=== PATIENT | male | born 1960 | race Two or more races ===

== ENCOUNTER 2018-08-30 14:12 | Emergency (ER) | payer OTHER ==
[~2018-08-30] VITALS: Ht 175.3 cm; Wt 79.4 kg
[~2018-08-30 14:12] MED LIST: INCARCERATION
[2018-08-30] MEDS ORDERED: CEPH500 PO (16:12)
[2018-08-30] MEDS ORDERED: Norco 5-325 Ta1 EACH PO (16:33)
== END 2018-08-30 16:47 | disposition home or self-care (01) ==
LOC: ER 14:12
DX: S62.522B Displaced fracture of distal phalanx of left thumb, initial encounter for open fracture (principal); W31.2XXA Contact with powered woodworking and forming machines, initial encounter; F17.200 Nicotine dependence, unspecified, uncomplicated
CPT/HCPCS: 12002; 73140; 90471; 90714; 96372-59; 99282-25; J0690

== ENCOUNTER 2019-11-12 12:07 | Emergency (ER) | payer OTHER ==
[~2019-11-12] VITALS: Ht 172.7 cm; Wt 72.6 kg
[~2019-11-12 12:07] MED LIST changes: +CEPH500 PO; +Norco 5-325 Ta1 EACH PO
[2019-11-12 13:12] LABS: BASOPHILS ABSOLUTE AUTO 0.08 K/mm3 (0.00-0.23); BASOPHILS PERCENT AUTO 1 % (0-2); EOSINOPHILS ABSOLUTE AUTO 0.19 K/mm3 (0.00-0.68); EOSINOPHILS PERCENT AUTO 2 % (0-6); Hematocrit 44.9 % (37.0-53.0); Hemoglobin 15.1 g/dL (13.5-17.5); IMMATURE GRAN ABSOLUTE AUTO 0.03 K/mm3 (0.00-0.10); IMMATURE GRAN PERCENT AUTO 0 % (0-1); LYMPHOCYTES ABSOLUTE AUTO 2.51 K/mm3 (0.84-5.20); LYMPHOCYTES PERCENT AUTO 25 % (21-46); MONOCYTES ABSOLUTE AUTO 1.39 K/mm3 (0.16-1.47); MONOCYTES PERCENT AUTO 14 % (4-13); Mean Corpuscular HGB 33.5 pg (26.0-34.0); Mean Corpuscular HGB Conc 33.6 g/dL (31.5-36.5); Mean Corpuscular Volume 100 fL (80-100); Mean Platelet Volume 9.7 fL (9.1-12.4); NEUTROPHILS PERCENT AUTO 58 % (41-73); Platelet Count 193 K/mm3 (150-400); RDW Coefficient Variation 13.5 % (11.7-14.2); RDW Standard Deviation 49.6 fL (35.1-46.3); Red Blood Cell Count 4.51 M/mm3 (4.30-5.90)
[2019-11-12 13:29] LABS: Troponin I <0.015 ng/mL (0.000-0.040)
[2019-11-12 13:30] LABS: Alanine Aminotransfer (ALT/SGP 132 U/L (12-78); Albumin, Blood 2.4 g/dL (3.4-5.0); Albumin/Globulin Ratio 0.5 (0.8-1.8); Alk Phos 256 U/L (50-136); Anion Gap 5 mmol/L (6-16); Aspartate Aminotrans (AST/SGOT 142 U/L (12-37); Bilirubin, Total 1.4 mg/dL (0.1-1.0); Blood Urea Nitrogen 8 mg/dL (8-24); Bun/Creatinine Ratio 12.3 (12.0-20.0); CO2, Blood 28 mmol/L (21-32); Calcium, Blood 8.2 mg/dL (8.5-10.1); Chloride, Blood 105 mmol/L (98-108); Creatinine, Blood 0.65 mg/dL (0.60-1.20); Globulin, Blood 4.4 g/dL (2.2-4.0); Glomerular Filtration Rate >60 (60-); Glucose, Blood 274 mg/dL (70-99); Sodium, Blood 138 mmol/L (136-145); Total Protein, Blood 6.8 g/dL (6.4-8.2)
[2019-11-12] MEDS ORDERED: KEFLEX500 MG PO (15:55)
== END 2019-11-12 16:11 | disposition home or self-care (01) ==
LOC: ER 12:07
PROVIDERS: Emergency Medicine
DX: R00.2 Palpitations (principal); L03.113 Cellulitis of right upper limb; R07.9 Chest pain, unspecified; S61.551A Open bite of right wrist, initial encounter; R14.0 Abdominal distension (gaseous); F17.200 Nicotine dependence, unspecified, uncomplicated; W54.0XXA Bitten by dog, initial encounter
CPT/HCPCS: 36415; 71046; 76700; 80053; 84484; 85025; 93005; 93010; 96365; 99285-25; J0696; J7030

== ENCOUNTER → 2019-11-25 | Outpatient (CLI) | payer OTHER ==
[~2019-11-25] MED LIST changes: +KEFLEX500 MG PO
[2019-11-25 16:10] LABS: BASOPHILS ABSOLUTE AUTO 0.06 K/mm3 (0.00-0.23); BASOPHILS PERCENT AUTO 1 % (0-2); EOSINOPHILS ABSOLUTE AUTO 0.21 K/mm3 (0.00-0.68); EOSINOPHILS PERCENT AUTO 4 % (0-6); Hematocrit 40.3 % (37.0-53.0); Hemoglobin 14.1 g/dL (13.5-17.5); IMMATURE GRAN ABSOLUTE AUTO 0.01 K/mm3 (0.00-0.10); IMMATURE GRAN PERCENT AUTO 0 % (0-1); LYMPHOCYTES ABSOLUTE AUTO 1.96 K/mm3 (0.84-5.20); LYMPHOCYTES PERCENT AUTO 32 % (21-46); MONOCYTES ABSOLUTE AUTO 0.58 K/mm3 (0.16-1.47); MONOCYTES PERCENT AUTO 10 % (4-13); Mean Corpuscular HGB 33.5 pg (26.0-34.0); Mean Corpuscular Volume 96 fL (80-100); Mean Platelet Volume 8.8 fL (9.1-12.4); NEUTROPHILS ABSOLUTE AUTO 3.26 K/mm3 (1.96-9.15); NEUTROPHILS PERCENT AUTO 54 % (41-73); Platelet Count 143 K/mm3 (150-400); RDW Coefficient Variation 13.2 % (11.7-14.2); RDW Standard Deviation 46.5 fL (35.1-46.3); Red Blood Cell Count 4.21 M/mm3 (4.30-5.90); White Blood Cell Count 6.08 K/mm3 (4.00-11.30)
[2019-11-25 16:28] LABS: Alanine Aminotransfer (ALT/SGP 157 U/L (12-78); Albumin, Blood 2.2 g/dL (3.4-5.0); Albumin/Globulin Ratio 0.5 (0.8-1.8); Alk Phos 200 U/L (40-126); Anion Gap 4 mmol/L (6-16); Aspartate Aminotrans (AST/SGOT 187 U/L (12-37); Bilirubin, Total 1.4 mg/dL (0.1-1.0); Blood Urea Nitrogen 10 mg/dL (8-24); Bun/Creatinine Ratio 10.8 (12.0-20.0); CO2, Blood 29 mmol/L (21-32); Chloride, Blood 105 mmol/L (98-108); Creatinine, Blood 0.93 mg/dL (0.60-1.20); Free Thyroxine 1.88 ng/dL (0.70-1.60); Globulin, Blood 4.4 g/dL (2.2-4.0); Glomerular Filtration Rate >60 (60-); Glucose, Blood 165 mg/dL (70-99); Potassium, Blood 3.6 mmol/L (3.5-5.5); Sodium, Blood 138 mmol/L (136-145); Thyroid Stimulating Hormone 1.086 uIU/mL (0.360-4.800); Total Protein, Blood 6.6 g/dL (6.4-8.2)
== END ==
LOC: LAB EV 16:03 → LAB SHORT 16:03
PROVIDERS: General Practice
DX: R53.81 Other malaise (principal); L02.419 Cutaneous abscess of limb, unspecified
CPT/HCPCS: 80053; 84439; 84443; 85025; 87070; 87075; 87077; 87185; 87205

== ENCOUNTER → 2023-02-09 | Outpatient (CLI) | payer OTHER ==
[2023-02-10 15:11] LABS: Stool Occult Bld Immuno 1 Negative (NEGATIVE)
== END | disposition home or self-care (01) ==
LOC: LAB SHORT 22:00 → LAB 22:00
PROVIDERS: Family Medicine
DX: Z12.11 Encounter for screening for malignant neoplasm of colon (principal); Z12.12 Encounter for screening for malignant neoplasm of rectum
CPT/HCPCS: G0328